=== PATIENT | male | born 1980 | race Caucasian/White ===

== ENCOUNTER 2016-04-02 04:26 | Emergency (ER) | payer SELFPAY ==
[~2016-04-02] VITALS: Ht 182.9 cm; Wt 93.0 kg
[2016-04-02 09:22] VITALS: BP 128/92
== END 2016-04-02 10:44 | disposition home or self-care (01) ==
LOC: ER 04:34
DX: S30.1XXA Contusion of abdominal wall, initial encounter (principal); Y04.0XXA Assault by unarmed brawl or fight, initial encounter; Y99.9 Unspecified external cause status; Y92.89 Other specified places as the place of occurrence of the external cause
CPT/HCPCS: 76870